=== PATIENT | male | born 1985 | race Caucasian/White ===

== ENCOUNTER 2019-04-11 19:23 | Emergency (ER) | payer OTHER ==
[2019-04-11] MEDS ORDERED: Clindamycin 150 MG CAP ONE (20:22)
[2019-04-11] MEDS ORDERED: traMADol HCl 50 MG TAB ONE (20:24)
--- NOTE | 2019-04-11 20:35 | CT ---
CT FACE WITHOUT CONTRAST: HISTORY: Jaw pain. COMPARISON: None. FINDINGS: There is a fracture of the right mandibular angle, extending to the alveolar bone of the third molar. There is a left mandibular body fracture, extending to the root of the second premolar. Interval dis placement of the right mandibular angle fracture with anterior displacement of the left mandibular lilliana dy, 2-3 mm. No subluxation of the temporomandibular joints. The medial orbital wolfe, lateral orbital wolfe, orbital floors and orbital roofs are intact. Pterygo id plates are intact. Rightward deviation of the osseous nasal septum with a right-sided osseous anabell al spur as well as a left-sided osseous nasal spur. The globes are intact. IMPRESSION: Right mandibular angle and left mandibular body fractures as described. POS: HOME
== END 2019-04-11 20:40 ==
LOC: NAV ERS 19:23
DX: S02.652A Fracture of angle of left mandible, initial encounter for closed fracture (principal); S02.602A Fracture of unspecified part of body of left mandible, initial encounter for closed fracture; F32.9 Major depressive disorder, single episode, unspecified; Z79.899 Other long term (current) drug therapy; W01.0XXA Fall on same level from slipping, tripping and stumbling without subsequent striking against object, initial encounter
CPT/HCPCS: 70486